=== PATIENT | male | born 1980 | race Caucasian/White ===

== ENCOUNTER 2018-01-25 07:15 | Emergency (ER) | payer BC ==
[2018-01-25] MEDS ORDERED: Ondansetron 4 MG Tab.DIS PO ONE (07:48)
[2018-01-25] MEDS ORDERED: Acetaminophen 325 MG Tab PO ONE (08:19)
--- NOTE | 2018-01-25 08:35 | CT ---
Head CT Technique: Multiple axial sections through the brain were obtained. Intravenous contrast was not utilized. Comparison: No previous intracranial imaging. Findings: Ventricles along with basal cisterns and sulci over the convexities are within normal limits for the patient's age. No abnormal parenchymal densities are seen. No evidence of intracranial hemorrhage. No midline shift or mass effect is seen. Mild mucosal thickening is noted within the ethmoid sinuses. No acute calvarial abnormality is identified. Impression: 1. Sinus findings most likely chronic. 2. No acute intracranial abnormality is identified. Diagnostic code #2
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
== END 2018-01-25 09:42 | disposition home or self-care (01) ==
LOC: JD.ED 07:15
DX: S06.0X9A Concussion with loss of consciousness of unspecified duration, initial encounter (principal); W00.9XXA Unspecified fall due to ice and snow, initial encounter
CPT/HCPCS: 36415; 70450; 80053; 85025; 99285; A9270; 99283